=== PATIENT | female | born 1950 | race Caucasian/White ===

== ENCOUNTER → 2016-12-14 | Outpatient (CLI) | payer MEDICARE ==
[~2016-12-14] MED LIST: ASPIRIN81 M1 PO; ASPIRIN81 M2 PO; ATENOLOL PO; CALCIUM + D 6001 TA1 PO; CLONIDINE PO; CLONIDINE TOP; CYMBALTA30 MG PO; DARVOCET-N 1001 TAB PO; HYDRALAZINE HC100 MG PO; HYDROCODON-ACE1 EAC1 PO; HYDROCODON-ACE1 EACH PO; LASIX PO; LISINOPRIL PO; LOVENOX40 MG/0.4 INJ; MAXZIDE 75/50 T1 TAB PO; NEURONTIN600 MG PO; NORVASC PO; OMEPRAZOLE20 M2 PO; PRAVACHOL PO; PROTONIX PO; ZESTRIL40 MG PO; ZOCOR PO
--- NOTE | ~2016-12-14 | MY29 ---
[facility] A Service of [facility] / [facility] RADIOLOGY TEXT RESULTS PATIENT: RADHA OBREGON LOCATION: [facility] : 52 UNIT #: [id number] AGE: [address]: Cortez Macedo MD SEX: F ORDER DR: [id number] [facility] [address] [place], [place] [address] [id number] O MR#: [id number] Acc #: [id number] NAME: RADHA OBREGON : 1950 SEX: F STUDY DATE/TIME: 12/14/2016 12:32 UNIT: [facility] ROOM: STUDY DESCRIPTION: MY DAMARIS SCREENING W/ CAD BILAT Attending Physician: Cortez Macedo M.D. Referring Physician: Cortez Macedo M.D. Ordering Physician: Cortez Macedo M.D. Primary Care Physician: Cortez Macedo M.D. MEDICAL IMAGING REPORT This report is preliminary unless electronic signature is present EXAM Digital screening mammogram, 12/14/2016, [facility]. HISTORY 66-year-old woman no risk elevation. Annual screen. COMPARISON Mammograms date to 10/31/2007 with most recent 10/28/2015 FINDINGS Digital imaging of each breast was completed utilizing a two-view examination of each breast in craniocaudal and mediolateral-oblique projections. Review and interpretation of digital mammograms include a second review in conjunction with FDA-approved CAD device. There is a normal parenchymal presentation bilaterally consistent with the patient's age. There are no breast masses imaged and no parenchymal asymmetry is visualized. There are no suspicious microcalcifications and I see no focal architectural disturbance. IMPRESSION Negative screening digital mammogram. One-year followup recommended. Patients over the age of 40 are entered into a reminder system with target due date for the next mammogram. A result letter will also be sent to the patient. BIRADS: 1 Negative ADDENDUM Breast parenchyma is fatty replaced. [facility] A Service of [facility] / [facility] RADIOLOGY TEXT RESULTS PATIENT: RADHA OBREGON LOCATION: [facility] : 52 UNIT #: [id number] AGE: [address]: Cortez Macedo MD SEX: F ORDER DR: Dictated by... Mike Toth M.D. THIS IS AN ELECTRONICALLY VERIFIED REPORT Mike Toth M.D. at 12/14/2016 3:40 PM SHIVANI/vargas TD: 12/14/2016 15:27 JOB #: [id number] MEDICAL IMAGING REPORT Page 1 of 1 COPY
== END | disposition home or self-care (01) ==
LOC: CWCC 11:56
DX: Z12.31 Encounter for screening mammogram for malignant neoplasm of breast (principal); R92.8 Other abnormal and inconclusive findings on diagnostic imaging of breast
CPT/HCPCS: G0202